=== PATIENT | female | born 1995 | race Caucasian/White ===

== ENCOUNTER 2018-03-03 13:44 | Emergency (ER) | payer MEDICAID, OTHER ==
[~2018-03-03] VITALS: Ht 160 cm; Wt 69.9 kg
[~2018-03-03 13:44] MED LIST: ACET500C5 PO; ACET500T98 PO; GUAI5SYR2 PO; IBUP-1982 PO; ONDA4TAB35 PO; OSLT75C PO; PRED20TA PO; PSEU120T12 PO
[2018-03-03 13:54] VITALS: BP 132/72; PULSE 93; RESP 20; Ht 160 cm; Wt 69.9 kg
--- NOTE | 2018-03-03 14:32 | ERD ---
ER Documentation Chief Complaint Chief Complaint chest pressure since this AM- denies SOB; recent cough HPI 22-year-old female, presents to the emergency department, complaining of 1 day with worsening of anxiety, chest pressure, shortness of breath and bilateral finger numbness with tingling. The patient states that she has been under a lot of stress at work and interpersonal relationships. ROS All systems reviewed and are negative except as per history of present illness. Medications Home Meds Active Scripts Lorazepam* (Ativan*) 0.5 Mg Tablet, 0.5 MG PO Q8H PRN for ANXIETY, #10 TAB Prov:NILSON LOPEZ MD 03/03/18 Guaifenesin-Dextromethorphan* (Robitussin* DM) 100MG/10MG/5ML Syrup, 5 ML PO Q6H PRN for COUGH for 7 Days, #120 ML Prov:JOHN RIOS PA-C 12/23/15 Pseudoephedrine Hcl (Sudafed 12 Hour) 120 Mg Tablet.sa, 120 MG PO BID for 7 Days Prov:JOHN RIOS PA-C 12/23/15 Acetaminophen* (Tylophen*) 500 Mg Capsule, 1 CAP PO Q6H PRN for PAIN AND OR ELEVATED TEMP, #20 CAP Prov:JOHN RIOS PA-C 12/23/15 Ondansetron Hcl* (Zofran* ODT) 4 mg -ODT Tab.disper, 4 MG PO DAILY PRN for NAUSEA AND/OR VOMITING, #10 TAB 0 Refills Prov:DAMIEN CARLOS PA-C 03/28/15 Guaifenesin-Dextromethorphan* (Robitussin* DM) 100MG/10MG/5ML Syrup, 5 ML PO Q6H PRN for COUGH, #120 ML 0 Refills Prov:DAMIEN CARLOS PA-C 03/28/15 Ibuprofen* (Ibuprofen*) 200 Mg Capsule, 200 MG PO Q6, #30 CAP 0 Refills Prov:DAMIEN CARLOS PA-C 03/28/15 Acetaminophen (Tylenol) 500 Mg Tab, 500 MG PO Q6, #30 TAB 0 Refills Prov:DAMIEN CARLOS PA-C 03/28/15 Oseltamivir Phosphate* (Tamiflu*) 75 Mg Capsule, 75 MG PO BID, #10 CAP 0 Refills Prov:TERRANCEDAMIEN LAWLER 03/28/15 Prednisone* (Prednisone*) 20 Mg Tab, 40 MG PO DAILY for 3 Days, TAB Prov:DELIA TREVINO PA-C 12/13/14 Allergies Allergies: Coded Allergies: No Known Allergy (Unverified , 12/13/14) PMhx/Soc History of Surgery: No Anesthesia Reaction: No Hx Neurological Disorder: No Hx Respiratory Disorders: No Hx Cardiac Disorders: No Hx Psychiatric Problems: No Hx Miscellaneous Medical Probl: No Hx Alcohol Use: No Hx Substance Use: No Hx Tobacco Use: No FmHx Family History: No diabetes, No coronary disease Physical Exam Vitals Vital Signs Date Temp Pulse Resp B/P (MAP) Pulse Ox O2 O2 Flow FiO2 Time Delivery Rate 03/03/18 99.0 93 20 132/72 99 13:54 (92) Physical Exam Const: No acute distress Head: Atraumatic Eyes: Normal Conjunctiva ENT: Normal External Ears, Nose and Mouth. Neck: Full range of motion. No meningismus. Resp: Clear to auscultation bilaterally Cardio: Regular rate and rhythm, no murmurs Abd: Soft, non tender, non distended. Normal bowel sounds Skin: No petechiae or rashes Back: No midline or flank tenderness Ext: No cyanosis, or edema Neur: Awake and alert Psych: Normal Mood and Affect Results 24 hrs Current Medications Medications Dose Sig/Pilar Start Time Status Last (Trade) Ordered Route PRN Stop Time Admin Dose Reason Admin Lorazepam 1 mg ONCE ONCE 03/03/18 DC 03/03/18 (Ativan) PO 15:00 15:08 03/03/18 15:05 EKG read by me: Rate/Rhythm: Regular rate and rhythm at a rate of 86 Intervals: Normal No acute ST changes. No T wave inversion Impression: No evidence of acute ischemia or arrhythmia Procedures/MDM Patient presents complaining of one episode today of chest pain, palpitations, shortness of breath and perioral paresthesias. Vital signs stable, Physical exam unremarkable, neurovascular exam intact. Differential diagnosis include but not limited to: Depression, anxiety, migraine, thyroid disease, electrolyte imbalance. Low suspicion for acute coronary event, aortic dissection, CVA. Pertinent Data: 12 Lead ECG: Sinus rhythm, no ST changes, normal T wave, normal intervals Physical examination and clinical presentation consistent most likely with anxiety. During the ED course the patient remained stable, no new complaints. The patient received treatment with lorazepam presenting overall improvement of the symptoms . Results and clinical impression discussed with patient who agrees with management. The patient is stable to be treated outpatient and will be discharged home with a Rx for lorazepam, some side effects of prescribed medications (headache, rash, nausea, vomiting, diarrhea, drowsiness, habituation, bleeding, hypertension, interactions with other medications) were reviewed. The patient was instructed to follow up with the primary care provider in the next 48h. If symptoms persist, worsen or new symptoms develop, then patient should return to the ED immediately. Instructions explained and given directly by me to the patient with ac knowledgment and demonstrated understanding. Disclaimer: Inadvertent spelling and grammatical errors are likely due to EHR/dictation software use and do not reflect on the overall quality of patient care. Also, please note that the electronic time recorded on this note does not necessarily reflect the actual time of the patient encounter. Departure Diagnosis: Primary Impression: Anxiety Condition: Stable Patient Instructions: Your Body's Response to Anxiety Additional Instructions: Thank you very much for allowing us to participate in your care. Your health and safety is our top priority at [facility]. Call your primary care doctor TOMORROW for an appointment during the next 2-4 days and bring all the information and medications prescribed. Have prescriptions filled and follow precisely the directions on the label. If the symptoms get worse and your provider is unavailable, return to the Emergency Department immediately. NILSON LOPEZ MD Mar 03, 2018 14:32
[2018-03-03] MEDS ORDERED: LORAZEPAM 1 MG TAB PO ONE (15:00)
[2018-03-03] MEDS ORDERED: LORA-441 PO (15:49)
== END 2018-03-03 15:57 | disposition home or self-care (01) ==
LOC: FTE 13:44
DX: F41.9 Anxiety disorder, unspecified (principal)
CPT/HCPCS: 93005; Z7502; Z7610; 99283